=== PATIENT | male | born 1985 | race Caucasian/White ===

== ENCOUNTER → 2016-10-07 | Outpatient (CLI) | payer BC ==
--- NOTE | 2016-10-07 14:18 | REP ---
RIGHT FINGERS, FOUR VIEWS: HISTORY: Contusion. There is no acute fracture or dislocation. The joint spaces are normal in appearance. IMPRESSION: There is no acute fracture or dislocation. Signed by Jamie Cook MD 10/07/2016 02:24 P
--- NOTE | 2016-10-07 14:54 | REP ---
RIGHT WRIST, FOUR VIEWS: HISTORY: Contusion. There is no acute fracture or dislocation. The joint spaces are normal in appearance. IMPRESSION: There is no acute fracture or dislocation. Signed by Jamie Cook MD 10/07/2016 02:57 P
== END ==
LOC: M WUC 11:18
PROVIDERS: ATTEND Physician Assistant
DX: S60.211A Contusion of right wrist, initial encounter (principal); S60.011A Contusion of right thumb without damage to nail, initial encounter; X58.XXXA Exposure to other specified factors, initial encounter; Y92.89 Other specified places as the place of occurrence of the external cause; Y93.89 Activity, other specified; Y99.8 Other external cause status

== ENCOUNTER → 2016-12-28 | Outpatient (CLI) | payer BC ==
[2016-12-28 08:25] LABS: BASO % 0.6 % (0.0-1.0); EOS # 0.2 K/mm3 (0.0-0.50); EOS % 3.1 % (0.0-3.0); LARGE UNSTAINED CELL # 0.2 K/mm3 (0.0-0.4); LARGE UNSTAINED CELL % 2.1 % (0.0-4.0); LYMPH # 1.9 K/mm3 (1.5-4.5); LYMPH % 21.4 % (24.0-44.0); MEAN CORPUSCULAR HEMOGLOBIN 30.1 pg (27.0-33.0); MEAN CORPUSCULAR HGB CONC 35.1 g/dl (32.0-36.5); MEAN CORPUSCULAR VOLUME 85.8 fl (80.0-96.0); MONO # 0.5 K/mm3 (0.0-0.8); MONO % 5.5 % (0.0-5.0); NEUTROPHILS # 5.5 K/mm3 (1.8-7.7); NEUTROPHILS % 67.2 % (36.0-66.0); PLATELET COUNT, AUTOMATED 101 k/mm3 (150-450); RED CELL DISTRIBUTION WIDTH 12.4 % (11.5-14.5); WHITE BLOOD COUNT 8.2 K/mm3 (4.0-10.0)
[2016-12-28 08:57] LABS: ALBUMIN 4.5 GM/DL (3.2-5.2); ALBUMIN/GLOBULIN RATIO 1.45 (1.00-1.93); ALKALINE PHOSPHATASE 62 U/L (45-117); ALT/SGPT 17 U/L (12-78); ANION GAP 8 MEQ/L (8-16); AST/SGOT 13 U/L (15-37); BILIRUBIN,TOTAL 0.7 MG/DL (0.2-1.0); BLOOD UREA NITROGEN 13 MG/DL (7-18); CALCIUM LEVEL 9.3 MG/DL (8.5-10.1); CARBON DIOXIDE LEVEL 27 MEQ/L (21-32); CHLORIDE LEVEL 108 MEQ/L (98-107); CHOLESTEROL LEVEL 147 MG/DL (<200); CREATININE FOR GFR 0.97 MG/DL (0.70-1.30); GLOMERULAR FILTRATION RATE > 60.0 (>60); GLUCOSE, FASTING 104 MG/DL (70-105); POTASSIUM SERUM 4.1 MEQ/L (3.5-5.1); SODIUM LEVEL 143 MEQ/L (136-145); TOTAL PROTEIN 7.6 GM/DL (6.4-8.2); TRIGLYCERIDES LEVEL 58 MG/DL (<150)
== END ==
LOC: M LAB 08:03
PROVIDERS: ATTEND Family Medicine
DX: Z00.00 Encounter for general adult medical examination without abnormal findings (principal)

== ENCOUNTER → 2017-02-21 | Outpatient (REF) | payer BC | LOC: M LAB REF 13:10 | PROVIDERS: ATTEND Urology | DX: Z30.2 Encounter for sterilization (principal) ==

== ENCOUNTER → 2021-01-23 | Outpatient (REF) | payer BC ==
[~2021-01-23] MED LIST: ALBU8.5H INH; AZIT-12 PO; BACT800T5 PO; PRED20TA PO
== END ==
LOC: M WUC 18:54
PROVIDERS: ATTEND Physician Assistant
DX: J20.9 Acute bronchitis, unspecified (principal); Z20.828 Contact with and (suspected) exposure to other viral communicable diseases

== ENCOUNTER 2021-01-28 12:25 | Observation (INO) | payer BC ==
[~2021-01-28] VITALS: Ht 185.4 cm; Wt 72.5 kg
[2021-01-28] MEDS ORDERED: PRED20TA PO (12:45)
[2021-01-28] MEDS ORDERED: ALBU8.5H INH (12:45)
[2021-01-28] MEDS ORDERED: AZIT-12 PO (12:45)
[2021-01-28 13:37] LABS: BASO # 0.1 10^3/uL (0.0-0.2); BASO % 0.4 % (0.0-1.0); EOS # 0.2 10^3/uL (0.0-0.5); EOS % 1.7 % (0.0-3.0); HEMATOCRIT 43.2 % (42.0-52.0); HEMOGLOBIN 14.8 g/dl (13.5-17.5); LYMPH # 3.5 10^3/uL (1.5-5.0); LYMPH % 23.9 % (24.0-44.0); MEAN CORPUSCULAR HEMOGLOBIN 29.8 pg (27.0-33.0); MEAN CORPUSCULAR HGB CONC 34.3 g/dl (32.0-36.5); MEAN CORPUSCULAR VOLUME 87.1 fl (80.0-96.0); MONO # 1.2 10^3/uL (0.0-0.8); MONO % 8.1 % (2.0-8.0); NEUTROPHILS # 9.5 10^3/uL (1.5-8.5); NEUTROPHILS % 65.2 % (36.0-66.0); PLATELET COUNT, AUTOMATED 343 10^3/uL (150-450); RED BLOOD COUNT 4.96 10^6/uL (4.30-6.10); WHITE BLOOD COUNT 14.5 10^3/uL (4.0-10.0)
[2021-01-28 13:58] LABS: ALBUMIN 3.9 GM/DL (3.2-5.2); ALT/SGPT 50 U/L (12-78); BILIRUBIN,DIRECT 0.2 MG/DL (0.0-0.2); BILIRUBIN,TOTAL 0.4 MG/DL (0.2-1.0); BLOOD UREA NITROGEN 12 MG/DL (7-18); CARBON DIOXIDE LEVEL 26 MEQ/L (21-32); CHLORIDE LEVEL 106 MEQ/L (98-107); CK-MB VALUE MASS < 1.0 NG/ML (<3.6); CPK CREATINE PHOSPHOKINASE 129 U/L (39-308); CREATININE FOR GFR 0.93 MG/DL (0.70-1.30); GLOMERULAR FILTRATION RATE > 60.0 (>60); GLUCOSE, FASTING 93 MG/DL (70-100); MB/CK RELATIVE INDEX 0.78 (< OR =4); NT-PRO BNP 50 PG/ML (<125); POTASSIUM SERUM 3.5 MEQ/L (3.5-5.1); SODIUM LEVEL 141 MEQ/L (136-145); THYROID STIMULATING HORMONE 0.767 uIU/ML (0.358-3.740); TROPONIN I < 0.02 NG/ML (< 0.10)
[2021-01-28] MEDS ORDERED: LIDOCAINE 1% MDV 20ML VIAL As Ordered ONE (14:12)
[2021-01-28] MEDS ORDERED: ACETAMINOPHEN TAB 650MG DOSE (2X325MG) PO PRN (14:45)
[2021-01-28] MEDS ORDERED: KETOROLAC 30 MG/ML 1ML VIAL IV PRN (14:45)
[2021-01-28] MEDS ORDERED: ONDANSETRON 4MG/2ML VIAL IV PRN (14:45)
[2021-01-28 15:04] LABS: RSV AMPLIFICATION NEGATIVE (NEGATIVE)
[2021-01-28 16:24] VITALS: BP 113/72
[2021-01-28] MEDS ORDERED: HOME MED LIST COMPLETE! XX SCH (16:25)
--- NOTE | 2021-01-28 16:26 | REP ---
INDICATION: S/P LEFT PNEUMOTHORAX DRAIN COMPARISON: 01/28/2021 10:52 a.m. TECHNIQUE: PA/Lateral FINDINGS: There has been placement of a pigtail drainage catheter into the left pleural space inferiorly and laterally. Previously noted pneumothorax has significantly decreased in size. There is mild residual left apical pneumothorax. There is mild subsegmental atelectasis inferiorly in the left lung. The heart and mediastinum are within normal limits. IMPRESSION: Placement of left pigtail pleural drainage catheter inferolaterally on the left. Small residual left apical pneumothorax. <Electronically signed by Kevin Eaton > 01/28/21 0085
[2021-01-28] MEDS: PIPERACILLIN/TAZOBACTAM SOD 3.375 GM in D5W MINI-BAG PLUS 50 ML IV SCH ×2 (17:02→21:09)
--- NOTE | 2021-01-28 17:10 | REP ---
INDICATION: left pneumothorax drain. COMPARISON: None. TECHNIQUE: The procedure was performed under the direct supervision of Dr. Eaton. Patient's history of a left spontaneous pneumothorax. The patient is referred for placement of a pigtail catheter. The risks and benefits of the procedure were explained to the patient and informed consent was obtained. The left pneumothorax was localized using CT guidance. The skin was prepped and draped in a sterile fashion. 1% lidocaine was used as a local anesthetic. Using CT guidance an 8 [place] sk[place] APDL catheter was inserted using trocar technique. Is much air is possible was vacuum weighted from the pleural space. Follow-up CT shows near complete resolution of the left pneumothorax. The catheter was affixed to the skin and a sterile dressing was applied. The end of the catheter was capped off and wrapped in a Vaseline gauze. The chest tube will be followed by Dr. Kulkarni. FINDINGS: None IMPRESSION: CT guidance for left chest pigtail catheter placement. <Electronically signed by Juancho Leary > 01/28/21 1624 <Electronically signed by Kevin Eaton > 01/28/21 1785
--- NOTE | 2021-01-28 19:26 | ECGEPIP ---
[facility] - ED Test Date: 2021-01-28 Pat Name: NICKOLAS BHAGAT Department: Room: - Gender: Male [employer]: CARLOS : 1985 Requested By: RICCARDO GREGG Order Number: [id number] Reading MD: Sher Gutierres Measurements Intervals [place] Rate: 72 P: 78 VA: 148 QRS: -55 QRSD: 104 T: 70 QT: 398 QTc: 435 Interpretive Statements Normal sinus rhythm Possible Left atrial enlargement Left axis deviation Incomplete right bundle branch block POOR R WAVE PROGRESSION NO PRIORS FOR COMPARISON Electronically Signed on 01-28-2021 19:25:57 EDT by Sher Gutierres
[2021-01-28 20:25] VITALS: BP 116/71
[2021-01-29] MEDS: PIPERACILLIN/TAZOBACTAM SOD 3.375 GM in D5W MINI-BAG PLUS 50 ML IV SCH ×2 (04:24→10:00)
[2021-01-29 06:00] VITALS: BP 119/74
--- NOTE | 2021-01-29 08:44 | REP ---
INDICATION: pneumothorax follow up. COMPARISON: PA and lateral chest, 01/28/2021. TECHNIQUE: Upright AP portable chest image was obtained. FINDINGS: There is again noted a small bore thoracostomy tube on the left. There is a small residual apical pneumothorax on the left. The lungs are otherwise clear. There are no pleural effusions. The heart borders and mediastinum are normal. IMPRESSION: 1. Small bore thoracostomy tube, on the left, unchanged in position. 2. Small residual apical pneumothorax on the left. <Electronically signed by Ludwin Cleary > 01/29/21 [id number]
[2021-01-29] MEDS ORDERED: INFLUENZA QUADRIVALENT PF VACCINE 0.5ML SYRINGE IM ONE (09:00)
[2021-01-29] MEDS ORDERED: AZIT-12 PO (09:16)
--- NOTE | 2021-01-29 10:16 | HPE ---
HISTORY AND PHYSICAL DATE OF ADMISSION: 01/28/2021 CHIEF COMPLAINT: Chest pain. HISTORY OF PRESENT ILLNESS: The patient is a 35-year-old male recently diagnosed with rhinovirus. He had some severe coughing this past Sunday during which time he had severe left-sided chest pain. The patient got better over the next few days. Yesterday he was swimming in his parent's pool and he felt great other than some shortness of breath with any exertion. Because of that he took himself to urgent care where they had an x-ray done that was concerning for medium sized pneumothorax. He was sent over to the emergency room emergently with plan for chest tube insertion. He has not had any coughing since Sunday, no fevers, no shortness of breath other than with minor exertion and some mild chest pains on the left side. He denies any other medical problems. He has never had any problems like this in the past. PAST MEDICAL HISTORY: Negative. PAST SURGICAL HISTORY: Dental surgery. HOME MEDS: None. ALLERGIES: NONE. SOCIAL HISTORY: Denies drug, alcohol, tobacco abuse. FAMILY HISTORY: Noncontributory. REVIEW OF SYSTEMS: Pertinent positives and negatives as noted in HPI. PHYSICAL EXAMINATION: GENERAL: A&O X3, no acute distress. VITALS: Temp 97.7, pulse 60, respirations 18, blood pressure 119/74, pulse ox 99% on 4 liter nasal cannula. HEENT: Pupils equal, round and reactive to light and accommodation. HEART: S1, S2, regular rate and rhythm. LUNGS: Clear to auscultation bilaterally. Chest tube is in place in left mid chest laterally. ABDOMEN: Soft, nontender, nondistended. EXTREMITIES: No cyanosis, clubbing or edema. LABS: White count 14.5, hemoglobin 14.8, platelets 343. Potassium 3.5, creatinine 0.93. IMAGING: Chest x-ray yesterday afternoon after chest tube placement showed placement of the left pigtail pleural drainage catheter inferolateral on left, small residual left apical pneumothorax. Chest x-ray from this morning shows again the small residual apical pneumothorax on the left. I did review both images myself and there is definite improvement this morning compared to last night. ASSESSMENT/PLAN: The patient again is 35-year-old male status post left pneumothorax, secondary to coughing from rhinovirus. He is postop procedure day 1 from aspiration of the left pneumo. Repeat x-rays this morning confirms that the pneumo is continuing to resolve on its own, there area no signs of any residual air leakage. The tube was removed at the bedside this morning by myself and Vaseline gauze dressing was applied. The patient will be discharged home this morning. He will resume his Azithromycin for five more days upon discharge. He does not need to follow up with me in the office; he can follow up with his primary in one week. If he has any recurrence of fevers, shortness of breath or chest pain then he should return for repeat exam at that time. All of his questions were answered. He will be discharged home this morning.
[2021-02-01] MEDS ORDERED: BACT800T5 PO (07:55)
== END 2021-01-29 11:23 | disposition home or self-care (01) ==
LOC: M ED 12:25 → M ED INP 12:26 → ENRESERV 15:29 → M MSPAV 16:21
PROVIDERS: ADMIT Surgery; ATTEND Surgery
DX: J93.9 Pneumothorax, unspecified (principal); B34.8 Other viral infections of unspecified site; R05 Cough
CPT/HCPCS: 32555; 36415; 71045; 71046; 77012; 80048; 80076; 82550; 82553; 83880; 84443; 84484; 85025; 87070; 87075; 87077; 87186; 87205; 87631; 90471; 90686; 93005; 93041; 94760; 96374; 96375; 96376; 99285; J2543

== ENCOUNTER → 2021-01-28 | Outpatient (CLI) | payer BC ==
[~2021-01-28] MED LIST changes: -BACT800T5 PO
--- NOTE | 2021-01-28 11:05 | REP ---
INDICATION: ACUTE BRONCHITIS, ACUTE UPPER RESPIRATORY INFECTION. COMPARISON: None. TECHNIQUE: PA and lateral FINDINGS: There is a left-sided pneumothorax causing a shift to the mediastinal structures to the contralateral side. The heart is not enlarged. The right lung field is clear. The osseous structures are intact. IMPRESSION: Left-sided tension pneumothorax. A phone call was placed to, Marisabel Prasad this patient's healthcare provider to discuss these findings <Electronically signed by Peter Nunn > 01/28/21 1100
== END ==
LOC: M WUC 10:28
PROVIDERS: ATTEND Physician Assistant Medical
DX: J93.9 Pneumothorax, unspecified (principal); J06.9 Acute upper respiratory infection, unspecified; J20.9 Acute bronchitis, unspecified; Z20.828 Contact with and (suspected) exposure to other viral communicable diseases

== ENCOUNTER → 2021-02-07 | Outpatient (CLI) | payer BC ==
[~2021-02-07] MED LIST changes: +BACT800T5 PO
--- NOTE | 2021-02-07 13:38 | REP ---
INDICATION: PNEUMOTHORAX, LEFT COMPARISON: 01/28/2021 TECHNIQUE: PA and lateral. FINDINGS: The mediastinum and cardiac silhouette are normal. The lung waters are clear and without acute consolidation, effusion, or pneumothorax. The skeletal structures are intact and normal. Previously noted left pneumothorax resolved. IMPRESSION: No acute cardiopulmonary process. Previous left pneumothorax resolved. <Electronically signed by Luis Carlos Haro > 02/07/21 [id number]
== END ==
LOC: M WUC 13:09
PROVIDERS: ATTEND Physician Assistant
DX: J93.9 Pneumothorax, unspecified (principal)

== ENCOUNTER → 2021-02-10 | Outpatient (REF) | payer BC ==
[2021-02-10 17:31] LABS: BASO # 0.1 10^3/uL (0.0-0.2); BASO % 0.7 % (0.0-1.0); EOS # 0.2 10^3/uL (0.0-0.5); EOS % 2.6 % (0.0-3.0); HEMATOCRIT 43.6 % (42.0-52.0); HEMOGLOBIN 14.5 g/dl (13.5-17.5); LYMPH # 1.6 10^3/uL (1.5-5.0); LYMPH % 23.7 % (24.0-44.0); MEAN CORPUSCULAR HEMOGLOBIN 29.4 pg (27.0-33.0); MEAN CORPUSCULAR HGB CONC 33.3 g/dl (32.0-36.5); MEAN CORPUSCULAR VOLUME 88.4 fl (80.0-96.0); MONO # 0.6 10^3/uL (0.0-0.8); MONO % 9.1 % (2.0-8.0); NEUTROPHILS # 4.3 10^3/uL (1.5-8.5); NEUTROPHILS % 63.6 % (36.0-66.0); PLATELET COUNT, AUTOMATED 165 10^3/uL (150-450); RED BLOOD COUNT 4.93 10^6/uL (4.30-6.10); WHITE BLOOD COUNT 6.8 10^3/uL (4.0-10.0)
[2021-02-10 18:41] LABS: ALBUMIN 4.1 GM/DL (3.2-5.2); ALT/SGPT 25 U/L (12-78); BILIRUBIN,TOTAL 0.6 MG/DL (0.2-1.0); BLOOD UREA NITROGEN 11 MG/DL (7-18); CALCIUM LEVEL 9.5 MG/DL (8.5-10.1); CARBON DIOXIDE LEVEL 27 MEQ/L (21-32); CHLORIDE LEVEL 104 MEQ/L (98-107); CHOLESTEROL LEVEL 156 MG/DL (<200); CHOLESTEROL RISK RATIO 2.437 (<5); CREATININE FOR GFR 0.86 MG/DL (0.70-1.30); GLOMERULAR FILTRATION RATE > 60.0 (>60); GLUCOSE, FASTING 107 MG/DL (70-100); HDL CHOLESTEROL 64 MG/DL (>40); LDL CHOLESTEROL 81 MG/DL (<100); NON-HDL-C 92 MG/DL; POTASSIUM SERUM 4.1 MEQ/L (3.5-5.1); SODIUM LEVEL 139 MEQ/L (136-145); TOTAL 25(OH) VITAMIN D 29.1 NG/ML (30.0-100.0); TOTAL PROTEIN 7.2 GM/DL (6.4-8.2); TRIGLYCERIDES LEVEL 57 MG/DL (<150)
== END ==
LOC: M SFHCCAPE 08:08
PROVIDERS: ATTEND Physician Assistant
DX: Z13.6 Encounter for screening for cardiovascular disorders (principal)

== ENCOUNTER → 2022-02-09 | Outpatient (REF) | payer BC ==
[~2022-02-09] MED LIST changes: +ZITHTAB PO
[2022-02-09 18:07] LABS: BASO # 0.1 10^3/uL (0.0-0.2); BASO % 0.5 % (0.0-1.0); EOS # 0.2 10^3/uL (0.0-0.5); EOS % 1.2 % (0.0-3.0); LYMPH # 1.6 10^3/uL (1.5-5.0); LYMPH % 12.6 % (24.0-44.0); MEAN CORPUSCULAR HGB CONC 33.3 g/dl (32.0-36.5); MEAN CORPUSCULAR VOLUME 87.1 fl (80.0-96.0); MONO # 1.5 10^3/uL (0.0-0.8); MONO % 11.3 % (2.0-8.0); NEUTROPHILS # 9.5 10^3/uL (1.5-8.5); RED BLOOD COUNT 4.82 10^6/uL (4.30-6.10); WHITE BLOOD COUNT 12.8 10^3/uL (4.0-10.0)
[2022-02-09 18:28] LABS: PLATELET COUNT, AUTOMATED 88 10^3/uL (150-450)
[2022-02-09 18:36] LABS: MONO REFLEX EBV COMP NEGATIVE (NEGATIVE)
[2022-02-09 19:03] LABS: ALBUMIN 4.3 GM/DL (3.2-5.2); ALT/SGPT 17 U/L (12-78); BILIRUBIN,TOTAL 0.7 MG/DL (0.2-1.0); BLOOD UREA NITROGEN 10 MG/DL (7-18); C REACTIVE PROTEIN QUANTITATIV 2.09 MG/DL (0.00-0.30); CARBON DIOXIDE LEVEL 24 MEQ/L (21-32); CHLORIDE LEVEL 102 MEQ/L (98-107); CREATININE FOR GFR 0.94 MG/DL (0.70-1.30); GLOMERULAR FILTRATION RATE > 60.0 (>60); GLUCOSE, FASTING 90 MG/DL (70-100); POTASSIUM SERUM 3.7 MEQ/L (3.5-5.1); SODIUM LEVEL 134 MEQ/L (136-145); TOTAL PROTEIN 7.4 GM/DL (6.4-8.2)
== END ==
LOC: M SFHCCAPE 11:18
PROVIDERS: ATTEND Physician Assistant
DX: R59.0 Localized enlarged lymph nodes (principal); R53.83 Other fatigue

== ENCOUNTER → 2022-02-10 | Outpatient (CLI) | payer BC | LOC: M WHC 13:56 | PROVIDERS: ATTEND Physician Assistant | DX: R59.0 Localized enlarged lymph nodes (principal) ==

== ENCOUNTER 2022-02-13 10:09 | Emergency (ER) | payer BC ==
[~2022-02-13] VITALS: Ht 190.5 cm; Wt 81.4 kg
[~2022-02-13 10:09] MED LIST changes: -ZITHTAB PO
[2022-02-13 11:19] LABS: RSV AMPLIFICATION NEGATIVE (NEGATIVE)
[2022-02-13] MEDS ORDERED: NS 1,000 ML IV ONE (11:30)
[2022-02-13 11:54] LABS: BASO # 0.1 10^3/uL (0.0-0.2); BASO % 0.7 % (0.0-1.0); EOS # 0.2 10^3/uL (0.0-0.5); EOS % 2.4 % (0.0-3.0); HEMOGLOBIN 14.1 g/dl (13.5-17.5); LYMPH # 1.9 10^3/uL (1.5-5.0); LYMPH % 19.4 % (24.0-44.0); MEAN CORPUSCULAR HEMOGLOBIN 29.3 pg (27.0-33.0); MEAN CORPUSCULAR HGB CONC 34.4 g/dl (32.0-36.5); MEAN CORPUSCULAR VOLUME 85.2 fl (80.0-96.0); MONO # 1.2 10^3/uL (0.0-0.8); MONO % 12.3 % (2.0-8.0); NEUTROPHILS # 6.3 10^3/uL (1.5-8.5); NEUTROPHILS % 64.7 % (36.0-66.0); PLATELET COUNT, AUTOMATED 194 10^3/uL (150-450); RED BLOOD COUNT 4.81 10^6/uL (4.30-6.10); WHITE BLOOD COUNT 9.8 10^3/uL (4.0-10.0)
[2022-02-13] MEDS ORDERED: ISOVUE-370 76% 100ML VIAL As Ordered ONE (11:55)
[2022-02-13] MEDS ORDERED: ZITHTAB PO (13:05)
[2022-02-13 13:17] VITALS: BP 116/63
== END 2022-02-13 13:20 | disposition home or self-care (01) ==
LOC: M ED 10:09
DX: R50.9 Fever, unspecified (principal); R59.0 Localized enlarged lymph nodes
CPT/HCPCS: 71260; 80047; 85025; 86140; 87631; 96360; 96361; 99283; Q9967

== ENCOUNTER → 2022-02-17 | Outpatient (CLI) | payer BC ==
[~2022-02-17] MED LIST changes: +ZITHTAB PO
[2022-02-17 10:28] LABS: APPEARANCE, URINE MANUAL CLEAR (CLEAR); COLOR, URINE MANUAL YELLOW (YELLOW)
[2022-02-17 10:30] LABS: SPECIFIC GRAVITY,URINE MANUAL 1.015 (1.002-1.035)
[2022-02-17 10:31] LABS: BILIRUBIN, URINE MANUAL NEGATIVE (NEGATIVE); BLOOD URINE MANUAL POSITIVE (NEGATIVE); GLUCOSE, URINE (UA) MANUAL NEGATIVE (NEGATIVE); KETONE, URINE MANUAL NEGATIVE (NEGATIVE); LEUKOCYTE ESTERASE, URINE MAN TRACE (NEGATIVE); NITRITE, URINE MANUAL NEGATIVE (NEGATIVE); PROTEIN, URINE MANUAL TRACE mg/dL (NEGATIVE); UROBILINOGEN, URINE MANUAL 1 MG mg/dl (NORMAL)
[2022-02-17 10:34] LABS: BASO # 0.1 10^3/uL (0.0-0.2); BASO % 0.6 % (0.0-1.0); EOS # 0.2 10^3/uL (0.0-0.5); EOS % 2.1 % (0.0-3.0); HEMATOCRIT 41.4 % (42.0-52.0); HEMOGLOBIN 14.1 g/dl (13.5-17.5); LYMPH # 2.1 10^3/uL (1.5-5.0); MEAN CORPUSCULAR HEMOGLOBIN 29.2 pg (27.0-33.0); MEAN CORPUSCULAR HGB CONC 34.1 g/dl (32.0-36.5); MEAN CORPUSCULAR VOLUME 85.7 fl (80.0-96.0); MONO # 1.5 10^3/uL (0.0-0.8); MONO % 14.3 % (2.0-8.0); NEUTROPHILS # 6.5 10^3/uL (1.5-8.5); NEUTROPHILS % 62.5 % (36.0-66.0); PLATELET COUNT, AUTOMATED 282 10^3/uL (150-450); RED BLOOD COUNT 4.83 10^6/uL (4.30-6.10); WHITE BLOOD COUNT 10.4 10^3/uL (4.0-10.0)
[2022-02-17 10:50] LABS: BACTERIA, URINE SMALL AMOUNT; HYALINE CAST, URINE NONE SEEN /lpf (0-1); SQUAMOUS EPITHELIAL CELL URINE SMALL AMOUNT /hpf (SMALL AMT)
[2022-02-17 10:51] LABS: MUCUS, URINE MOD AMOUNT (NEGATIVE)
[2022-02-17 11:03] LABS: ERYTHROCYTE SEDIMENTATION RATE 24 mm/hr (0-15)
[2022-02-17 11:09] LABS: ALBUMIN 3.8 GM/DL (3.2-5.2); ALT/SGPT 26 U/L (12-78); BILIRUBIN,TOTAL 0.3 MG/DL (0.2-1.0); BLOOD UREA NITROGEN 11 MG/DL (7-18); C REACTIVE PROTEIN QUANTITATIV 1.97 MG/DL (0.00-0.30); CALCIUM LEVEL 8.9 MG/DL (8.5-10.1); CARBON DIOXIDE LEVEL 27 MEQ/L (21-32); CHLORIDE LEVEL 105 MEQ/L (98-107); CREATININE FOR GFR 0.91 MG/DL (0.70-1.30); GLOMERULAR FILTRATION RATE > 60.0 (>60); GLUCOSE, FASTING 99 MG/DL (70-100); POTASSIUM SERUM 4.3 MEQ/L (3.5-5.1); SODIUM LEVEL 137 MEQ/L (136-145); TOTAL PROTEIN 7.3 GM/DL (6.4-8.2)
[2022-02-17 12:25] LABS: HEPATITIS C VIRUS ABY INDEX < 0.0 INDEX (<0.8)
[2022-02-17 12:27] LABS: HIV 1&2 SCREEN CENTAUR NEGATIVE (NEGATIVE)
== END ==
LOC: M LAB 09:41
PROVIDERS: ATTEND Physician Assistant
DX: I89.0 Lymphedema, not elsewhere classified (principal)

== ENCOUNTER → 2022-03-15 | Outpatient (CLI) | payer BC ==
[~2022-03-15] MED LIST changes: +LIDOCAINE 1% MDV 20ML VIAL As Ordered ONE
[2022-03-15 13:07] VITALS: BP 121/70
== END ==
LOC: M IRPRO 12:07
PROVIDERS: ATTEND Surgery
DX: R59.1 Generalized enlarged lymph nodes (principal)

== ENCOUNTER → 2022-06-30 | Outpatient (CLI) | payer BC ==
[~2022-06-30] MED LIST changes: -LIDOCAINE 1% MDV 20ML VIAL As Ordered ONE
== END ==
LOC: M WUC 13:48
PROVIDERS: ATTEND Physician Assistant
DX: M54.32 Sciatica, left side (principal); S73.192A Other sprain of left hip, initial encounter; W18.30XA Fall on same level, unspecified, initial encounter; Y92.009 Unspecified place in unspecified non-institutional (private) residence as the place of occurrence of the external cause

== ENCOUNTER 2023-07-26 09:29 | Emergency (ER) | payer BC, OTHER ==
[~2023-07-26] VITALS: Ht 190.5 cm; Wt 81.2 kg
[2023-07-26 09:30] VITALS: BP 118/57; TEMP 98.1; O2SAT 99
[2023-07-26] MEDS: DERMABOND TOPICAL SKIN ADHESIVE TOP ONE (09:53)
[2023-07-26] MEDS: BOOSTRIX VACCINE (TETANUS/DIPHTH/ACEL. PERTUSSIS) 0.5ML SYR IM.IMMUN ONE (09:53)
== END 2023-07-26 10:10 | disposition home or self-care (01) ==
LOC: M ED 09:29
DX: S51.811A Laceration without foreign body of right forearm, initial encounter (principal); Y92.9 Unspecified place or not applicable; Y93.9 Activity, unspecified; Y99.0 Civilian activity done for income or pay; F17.290 Nicotine dependence, other tobacco product, uncomplicated; Z23 Encounter for immunization